=== PATIENT | female | born 1950 | race African-American/Black ===

== ENCOUNTER 2017-10-25 03:57 | Outpatient (CLI) | payer MEDICARE | END 2017-10-25 03:58 | disposition home or self-care (01) | LOC: BICULT 03:57 | PROVIDERS: ATTEND Surgery | DX: Z53.9 Procedure and treatment not carried out, unspecified reason (principal) ==

== ENCOUNTER 2018-02-20 11:14 | Emergency (ER) | payer MEDICARE ==
[2018-02-20 12:22] LABS: #Eosinphils 0.2 thou/uL (0.0-0.7); #Lymphocytes 1.6 thou/uL (1.20-3.40); #Monocytes 0.4 thou/uL (0.11-0.59); #Neutrophils 3.4 thou/uL (1.40-6.50); %Basophils 0.6 % (0.0-1.0); %Eosinophils 2.9 % (0.0-10.0); %Lymphocytes 28.7 % (21.0-51.0); %Monocytes 7.8 % (0.0-10.0); Hemoglobin 10.6 g/dL (12.0-16.0); Mean Corpuscular HGB CONC 32.8 g/dL (32.0-36.0); Mean Corpuscular Hemoglobin 29.3 pg (27.0-31.0); Mean Corpuscular Volume 89.1 fl (81.0-99.0); Mean Platelet Volume 10.3 fL (7.4-10.4); Platelet Count 135 thou/uL (130-400); RBC Distribution Width 14.9 % (11.5-14.5); Red Blood Cell (RBC) Count 3.61 mill/uL (4.20-5.40); White Blood Cell (WBC) Count 5.6 thou/uL (4.8-10.8)
[2018-02-20 12:44] LABS: ALT (SGPT) 13 U/L (8-55); AST (SGOT) 19 U/L (5-34); Albumin 3.2 g/dL (3.4-4.8); Alkaline Phosphatase 126 U/L (40-150); Anion Gap 15 mmol/L (10-20); BUN (Urea Nitrogen) 106 mg/dL (9.8-20.1); Bilirubin, Total 0.5 mg/dL (0.2-1.2); Calc. Creatinine Clearance 0 mL/min (70-130); Calcium 9.2 mg/dL (7.8-10.44); Carbon Dioxide 20 mmol/L (23-31); Chloride 106 mmol/L (98-107); Estimated GFR-MDRD 12; Globulin 4.5 g/dL (2.4-3.5); Glucose 132 mg/dL (80-115); Protein, Total 7.7 g/dL (6.0-8.3); Sodium 136 mmol/L (136-145)
[2018-02-20 13:59] LABS: CKMB 2.6 ng/mL (0-6.6); Troponin I 0.017 ng/mL (< 0.028)
--- NOTE | 2018-02-20 14:17 | RAD ---
PORTABLE CHEST: History: Chest pain, shortness of breath. Comparison: 03-07-17 FINDINGS: There is a small left pleural effusion which has developed since prior exam. I cannot exclude streaky atelectasis and/or infiltrate in the left lung base seen to the cardiac silhouette. Upper lung zones appear clear. No evidence of vascular congestion. IMPRESSION: Small left pleural effusion and left basilar atelectasis and/or infiltrate. POS: [facility]
--- NOTE | 2018-02-20 14:24 | ULT ---
RIGHT LOWER EXTREMITY VENOUS ULTRASOUND WITH DOPPLER: Date: 02/20/18 HISTORY: Right lower extremity pain and edema. COMPARISON: None. TECHNIQUE: Pierce scale, color flow, Doppler imaging, and spectral waveform analysis performed of the right lower extremity venous system. FINDINGS: There is a mixed echotexture mass in the right groin measuring 3.4 x 1.8 x 1.0 cm without significant vascular flow. The possibility of a hematoma or necrotic lymph node should be considered. There is compressibility, presence of flow, and augmentation in the common femoral vein, femoral vein , and popliteal vein. There is flow in the greater saphenous vein, profunda vein, and posterior tibia l vein. IMPRESSION: 1. No evidence of thrombus in the right lower extremity deep venous system. 2. Nonvascular, slightly mixed echotexture mass in the right groin, which may represent hematoma or necrotic lymph node. Correlate clinically. POS: [facility]
[2018-02-20 14:51] LABS: Bilirubin Negative (Negative); Blood, Urine Negative (Negative); Glucose, Urine (Dipstick) 250 mg/dL (Negative); Leukocyte Negative (Negative); Nitrite Negative (Negative); Protein, Urine (Dipstick) 100 mg/dL (Neg-Trace); Urobilinogen 0.2 mg/dL (0.2-1.0)
[2018-02-20 14:53] LABS: Clarity CLEAR (Clear)
[2018-02-20 15:03] LABS: Bacteria/HPF 4+ HPF (None Seen); Hyaline Casts/LPF NONE SEEN LPF (0-3 Hyaline); RBC/HPF None Seen HPF (0-3); Squamous Epithelial 0-3 HPF (0-3); WBC/HPF None Seen HPF (0-3)
--- NOTE | 2018-02-23 15:02 | EKG ---
Test Reason : Blood Pressure : / mmHG Vent. Rate : 076 BPM Atrial Rate : 076 BPM P-R Int : 140 ms QRS Dur : 086 ms QT Int : 412 ms P-R-T Axes : 073 080 087 degrees QTc Int : 463 ms Normal sinus rhythm Possible Left atrial enlargement Borderline ECG Confirmed by TRINA FRANKS ([id number]), video news editor JESSI BRUSH ([id number]) on 02/23/2018 3:00:38 PM Referred By: Confirmed By:TRINA FRANKS
== END 2018-02-20 14:30 | disposition short-term general hospital (02) ==
LOC: ERS 11:14 → ERHOLD 14:30 → UNDOADMOB 14:44 → ERHOLD 14:44 → INTOOBSV 14:44 → OBSVTOIN 14:44 → ERHOLD 19:00 → UNDODISIN 19:27 → UNDODISOB 19:27
DX: N17.9 Acute kidney failure, unspecified (principal); R19.00 Intra-abdominal and pelvic swelling, mass and lump, unspecified site; I10 Essential (primary) hypertension; E11.9 Type 2 diabetes mellitus without complications; F32.9 Major depressive disorder, single episode, unspecified; Z79.899 Other long term (current) drug therapy
CPT/HCPCS: 36415; 51701; 71045; 80053; 81003; 81015; 82550; 82553; 83880; 84484; 85025; 87086; 93005; 96360; 96361; A4353